=== PATIENT | female | born 1995 | race Caucasian/White ===

== ENCOUNTER 2017-12-29 22:27 | Emergency (ER) | payer MEDICAID ==
[~2017-12-29] VITALS: Ht 167.6 cm; Wt 118.4 kg
[2017-12-29 23:03] VITALS: Ht 167.6 cm; Wt 118.4 kg
[2017-12-30 02:43] VITALS: BP 122/71
== END 2017-12-30 02:43 | disposition home or self-care (01) ==
LOC: ED 22:27
DX: F41.1 Generalized anxiety disorder (principal)

== ENCOUNTER 2018-12-31 08:18 | Emergency (ER) | payer MEDICAID ==
[~2018-12-31] VITALS: Ht 167.6 cm; Wt 116.1 kg
[2018-12-31 08:23] VITALS: Ht 167.6 cm; Wt 116.1 kg
[2018-12-31 10:33] VITALS: BP 112/61
== END 2018-12-31 10:33 | disposition home or self-care (01) ==
LOC: ED 08:18
DX: N39.0 Urinary tract infection, site not specified (principal)